=== PATIENT | male | born 1975 | race Caucasian/White ===

== ENCOUNTER 2017-08-24 18:42 | Emergency (ER) | payer OTHER ==
[~2017-08-24] VITALS: Ht 167.6 cm; Wt 72.7 kg
[2017-08-24] MEDS ORDERED: AMOX500C2 PO (19:02)
[2017-08-24 20:10] VITALS: BP 126/86
== END 2017-08-24 21:21 | disposition home or self-care (01) ==
LOC: EMS 18:46
DX: J02.9 Acute pharyngitis, unspecified (principal); R51 Headache
CPT/HCPCS: 99283